=== PATIENT | male | born 1965 | race Caucasian/White ===

== ENCOUNTER → 2021-10-30 12:48 | Outpatient (CLI) | payer OTHER, SELFPAY ==
--- NOTE | 2021-10-30 | DI.MRI.S_ITS ---
PROCEDURE: MR PELVIS WO CON INDICATIONS: Osteitis, unspecified TECHNIQUE: Noncontrast coronal and axial T1 spin echo and STIR through the bony pelvis. COMPARISON: None. FINDINGS: Image quality: Excellent. Bones: There is significant edema involving bilateral pubic bones adjacent to symphysis pubis with adjacent mild soft tissue edema. No discrete fracture line is seen. Joint space narrowing and subchondral sclerosis at symphysis pubis is also noted. 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 There is no other area of abnormal marrow signal. No acute fracture or dislocation. No evidence of avascular necrosis of femoral head. No suspicious intraosseous lesions. Soft tissues: Significant edema involving medial portion of left obturator externus muscle is seen suggestive of muscle strain/partial-thickness tear. No other muscle or tendon signal abnormality is noted. No joint effusions. No free pelvic fluid. Bladder wall thickness is normal. Genitourinary structures and bowel loops appear normal where visualized. IMPRESSION: 1. 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 2. Strain/low to moderate grade partial-thickness tear involving medial portion of left obturator externus muscle. No other muscle or tendon signal abnormality is seen. 3. No pelvic fracture or dislocation. No evidence of avascular necrosis of femoral head. Dictated by: Shiva Peña M.D. on 10/30/2021 at 15:57 Approved by: Shiva Peña M.D. on 10/30/2021 at 16:03
== END ==
PROVIDERS: PCP Internal Medicine; Referring Provider Orthopaedic Surgery Foot and Ankle Surgery; Visit Provider Orthopaedic Surgery Foot and Ankle Surgery
DX: M86.9 Osteomyelitis, unspecified (principal)
CPT/HCPCS: 72195